=== PATIENT | male | born 1960 | race Caucasian/White ===

== ENCOUNTER 2022-02-05 07:50 | Inpatient (IN) ==
[2022-02-05 08:19] LABS: Basophils % 0.1 % (0.0-0.8); Eosinophils # 0.1 10*3/uL (0.0-0.87); Eosinophils % 1.5 % (0.00-10.9); Hematocrit 45.6 VOL% (42.0-52.0); Hemoglobin 14.9 GM/DL (14.0-18.0); Immature Granulocytes % 0.6 %; Immature Granulocytes Absolute 0.04 #; Lymphocytes % 27.3 % (21.2-54.2); Mean Corpuscular HGB Conc 32.7 GM/DL (32-36); Mean Platelet Volume 12.9 FL (9.6-12.0); Monocytes # 0.6 10*3/uL (0.11-0.8); Monocytes % 8.6 % (1.7-12.7); Neutrophils % 61.9 % (38.7-73.9); Platelet Count 154 T/CUMM (130-400); Red Blood Count 5.24 MC/CUMM (3.8-5.5); Red Cell Distribution Width 12.9 % (9.3-17.3); White Blood Count 7.2 T/CUMM (4-12)
[2022-02-05] MEDS ORDERED: NITROGLYCERIN 2% OINT 1 INCH/GM PACK TOP STA (08:33)
[2022-02-05] MEDS ORDERED: ASPIRIN 325 MG TABLET PO STA (08:33)
[2022-02-05 08:37] LABS: Albumin 4.4 G/DL (3.4-5.0); Bilirubin,Total 0.9 MG/DL (0.20-1.00); Calcium 10.4 MG/DL (8.5-10.1); Osmolality,Calculated 282.3 MOS/KG (273-304); Potassium 3.9 MMOL/L (3.5-5.1); Total Protein 7.9 G/DL (6.4-8.2)
[2022-02-05] MEDS ORDERED: HEPARIN 5,000 UNIT/1 ML VIAL IV ONE (12:00)
[2022-02-05] MEDS: LACTATED RINGERS 1,000 ML IV SCH ×2 (12:47→21:55)
[2022-02-05] MEDS ORDERED: NITROGLYCERIN SL 0.4 MG TABLET SL PRN (12:54)
[2022-02-05] MEDS ORDERED: TIROFIBAN IV ONE (13:19)
[2022-02-05] MEDS ORDERED: diphenhydrAMINE CAP 50 MG CAPSULE PO ONE (13:21)
[2022-02-05] MEDS ORDERED: DIAZEPAM 5 MG TABLET PO ONE (13:21)
[2022-02-05] MEDS: NITROGLYCERIN 2% OINT 1 INCH/GM PACK TOP SCH ×2 (13:53→20:13)
[2022-02-05] MEDS ORDERED: MIDAZOLAM 2 MG/2 ML VIAL ONE (14:10)
[2022-02-05] MEDS ORDERED: HYDROmorphone 1 MG/1 ML SYRINGE ONE (14:10)
[2022-02-05] MEDS ORDERED: TIROFIBAN 5,000 MCG/100 ML PREMIX IV ONE (14:15)
[2022-02-05] MEDS: TIROFIBAN 5,000 MCG/100 ML PREMIX IV SCH (14:22)
[2022-02-05 14:30] LABS: PT Patient Result 11.4 SECS (10.1-12.1)
[2022-02-05] MEDS ORDERED: HEPARIN 5,000 UNIT/1 ML VIAL ONE (14:49)
[2022-02-05] MEDS ORDERED: PRASUGREL 10 MG TABLET ONE (15:23)
[2022-02-05] MEDS: carvediloL 6.25 MG TABLET PO SCH ×2 (15:53→21:51)
[2022-02-05] MEDS ORDERED: ROSUVASTATIN 20 MG TABLET PO SCH (21:00)
[2022-02-06] MEDS: NITROGLYCERIN 2% OINT 1 INCH/GM PACK TOP SCH ×2 (00:59→10:10)
[2022-02-06] MEDS: TIROFIBAN 5,000 MCG/100 ML PREMIX IV SCH (02:50)
[2022-02-06 05:28] LABS: Risk Ratio 4.79; Thyroid Stimulating Hormone 5.3 uIU/ml (0.358-3.74); VLDL Cholesterol 31.8 MG/DL
[2022-02-06 08:15] LABS: Basophils % 0.2 % (0.0-0.8); Eosinophils # 0.1 10*3/uL (0.0-0.87); Eosinophils % 1.8 % (0.00-10.9); Immature Granulocytes % 0.7 %; Immature Granulocytes Absolute 0.04 #; Lymphocytes # 1.1 10*3/uL (1.4-4.0); Lymphocytes % 18.2 % (21.2-54.2); Mean Corpuscular HGB Conc 33.2 GM/DL (32-36); Mean Corpuscular Volume 87.3 FL (87-102); Mean Platelet Volume 13.4 FL (9.6-12.0); Monocytes # 0.6 10*3/uL (0.11-0.8); Monocytes % 9.3 % (1.7-12.7); Neutrophils % 69.8 % (38.7-73.9); Platelet Count 155 T/CUMM (130-400); Red Blood Count 4.24 MC/CUMM (3.8-5.5); White Blood Count 6.1 T/CUMM (4-12)
[2022-02-06 08:18] LABS: Hemoglobin 12.3 GM/DL (14.0-18.0)
[2022-02-06 08:21] LABS: Calcium 9.2 MG/DL (8.5-10.1); Osmolality,Calculated 284.1 MOS/KG (273-304); Potassium 3.8 MMOL/L (3.5-5.1)
[2022-02-06 08:46] VITALS: BP 125/68
[2022-02-06] MEDS ORDERED: ASPIRIN EC 81 MG TABLET PO SCH (09:00)
[2022-02-06] MEDS ORDERED: PRASUGREL 10 MG TABLET PO SCH (09:00)
[2022-02-06] MEDS: carvediloL 6.25 MG TABLET PO SCH (10:01)
[2022-02-06] MEDS: LACTATED RINGERS 1,000 ML IV SCH (10:10)
== END 2022-02-06 11:25 | disposition home or self-care (01) | DRG 251 ==
LOC: N.TELEN 07:50 → N.ED 07:50 → N.TELEN 13:20 → N.ED 13:29 → SUATTDRO 13:54
PROVIDERS: ADMIT Internal Medicine; ATTEND Hospitalist